=== PATIENT | male | born 1965 | race Caucasian/White ===

== ENCOUNTER 2018-06-26 00:36 | Emergency (ER) | payer SELFPAY ==
[~2018-06-26] VITALS: Ht 177.8 cm; Wt 113.2 kg
[2018-06-26 04:03] VITALS: BP 132/80
== END 2018-06-26 04:04 | disposition home or self-care (01) ==
LOC: EME 00:36
PROC: 3E0234Z Introduction of Serum, Toxoid and Vaccine into Muscle, Percutaneous Approach (ICD-10-PCS; principal; 2018-06-26)
DX: M62.830 Muscle spasm of back (principal); M54.42 Lumbago with sciatica, left side; S80.812A Abrasion, left lower leg, initial encounter; W45.0XXA Nail entering through skin, initial encounter; Z23 Encounter for immunization; Z88.1 Allergy status to other antibiotic agents
CPT/HCPCS: 73590; 74176; 99281; 99284; J1100; J1885